=== PATIENT | male | born 1995 | race Hispanic/Latino ===

== ENCOUNTER 2019-06-02 16:07 | Emergency (ER) | payer BC ==
--- NOTE | 2019-06-02 17:02 | ER ---
Nurse's Notes [facility] Name: Chaitanya Law Age: 23 yrs Sex: Male : 1995 Arrival Date: 06/02/2019 Time: 16:11 Bed 14 Private MD: Diagnosis: Nausea and vomiting;Diarrhea, unspecified Presentation: 06/02 16:24 Presenting complaint: Patient states: abd pain, nausea/vomiting/diarrhea that began on aa5 Friday. Transition of care: patient was not received from another setting of care. Onset of symptoms was May 2019. Risk Assessment: Do you want to hurt yourself or someone else? Patient reports no desire to harm self or others. Initial Sepsis Screen: Does the patient meet any 2 criteria? No. Patient's initial sepsis screen is negative. Does the patient have a suspected source of infection? No. Patient's initial sepsis screen is negative. Care prior to arrival: None. 16:24 Acuity: ANABEL 3 aa5 16:24 Method Of Arrival: Ambulatory aa5 Historical: - Allergies: 16:25 Demerol; aa5 - Home Meds: 16:25 None [Active]; aa5 - PMHx: 16:25 None; aa5 - PSHx: 16:25 Appendectomy; aa5 - Immunization history:: Flu vaccine is not up to date. - Social history:: Smoking status: Patient/guardian denies using tobacco. - Ebola Screening: : No symptoms or risks identified at this time. Screenin:55 Abuse screen: Denies threats or abuse. Denies injuries from another. Nutritional hb screening: No deficits noted. Tuberculosis screening: No symptoms or risk factors identified. Fall Risk None identified. Assessment: 16:55 General: Appears in no apparent distress. Behavior is calm, cooperative. Pain: Pain hb currently is 5 out of 10 on a pain scale. Neuro: Level of Consciousness is awake, alert, obeys commands, Oriented to person, place, time, situation. Cardiovascular: Capillary refill < 3 seconds Patient's skin is warm and dry. Respiratory: Airway is patent Respiratory effort is even, unlabored, Respiratory pattern is regular, symmetrical. GI: Abdomen is non-distended, Bowel sounds present X 4 quads. Abd is soft and non tender X 4 quads. Reports lower abdominal pain, upper abdominal pain, diarrhea, nausea. : No signs and/or symptoms were reported regarding the genitourinary system. EENT: No signs and/or symptoms were reported regarding the EENT system. Derm: Skin is pink, warm \T\ dry. Musculoskeletal: No signs and/or symptoms reported regarding the musculoskeletal system. Vital Signs: 16:25 BP 143 / 81; Pulse 83; Resp 18 S; Temp 97.7(TE); Pulse Ox 97% on R/A; Weight 147.42 kg aa5 (R); Height 5 ft. 11 in. (180.34 cm) (R); Pain 5/10; 16:25 Body Mass Index 45.33 (147.42 kg, 180.34 cm) aa5 ED Course: 16:11 Patient arrived in ED. mr 16:12 Cherrie Viramontes FNP-C is PHCP. snw 16:12 Ji Aceves MD is Attending Physician. snw 16:25 Triage completed. aa5 16:25 Arm band placed on. aa5 16:45 PHCP role handed off by Cherrie Viramontes FNP-C cp 16:45 Clay Don PA is PHCP. cp 16:55 Patient has correct armband on for positive identification. Bed in low position. Call hb light in reach. Side rails up X 1. 17:04 Yahaira Betancourt RN is Primary Nurse. hb 17:06 No provider procedures requiring assistance completed. Patient did not have IV access hb during this emergency room visit. Administered Medications: No medications were administered Outcome: 17:01 Discharge ordered by . cp 17:14 Discharged to home ambulatory. hb 17:14 Condition: stable 17:14 Discharge instructions given to patient, Instructed on discharge instructions, follow up and referral plans. medication usage, Demonstrated understanding of instructions, follow-up care, medications, Prescriptions given X 1. 17:14 Patient left the ED. hb Signatures: Cherrie Viramontes FNP-C FNP-Chica Hemalatha AnayaKaty RN RN [facility] Clay Don PA PA cp Baxter, Heather, RN RN hb
--- NOTE | 2019-06-02 17:03 | EDPHYS ---
Physician Documentation [facility] Name: Chaitanya Law Age: 23 yrs Sex: Male : 1995 Arrival Date: 06/02/2019 Time: 16:11 Bed 14 Private MD: ED Physician Ji Aceves HPI: 06/02 16:51 This 23 yrs old Male presents to ER via Ambulatory with complaints of cp Abdominal Pain. 16:51 The patient presents with abdominal pain in the periumbilical area. Onset: The cp symptoms/episode began/occurred 2 day(s) ago. Associated signs and symptoms: Pertinent positives: nausea, vomiting, and diarrhea, Pertinent negatives: constipation, fever, testicular pain. The symptoms are described as burning. Severity of pain: in the emergency department the pain has improved. Patient reports vomiting and diarrhea improved today with 1 episode of vomiting and diarrhea this morning. Historical: - Allergies: 16:25 Demerol; aa5 - Home Meds: 16:25 None [Active]; aa5 - PMHx: 16:25 None; aa5 - PSHx: 16:25 Appendectomy; aa5 - Immunization history:: Flu vaccine is not up to date. - Social history:: Smoking status: Patient/guardian denies using tobacco. - Ebola Screening: : No symptoms or risks identified at this time. ROS: 16:55 Eyes: Negative for injury, pain, redness, and discharge. cp 16:55 Constitutional: Negative for body aches, chills, fever, poor PO intake. 16:55 ENT: Negative for drainage from ear(s), ear pain, sore throat, difficulty swallowing, difficulty handling secretions. 16:55 Cardiovascular: Negative for chest pain, palpitations. 16:55 Respiratory: Negative for cough, shortness of breath, wheezing. 16:55 Abdomen/GI: Positive for abdominal pain, nausea, vomiting, and diarrhea, Negative for constipation, black/tarry stool, rectal bleeding. 16:55 Back: Negative for pain at rest, pain with movement. 16:55 : Negative for urinary symptoms, testicular pain 16:55 Skin: Negative for cellulitis, rash. 16:55 Neuro: Negative for altered mental status, headache, weakness. 16:55 All other systems are negative. Exam: 16:59 Head/Face: Normocephalic, atraumatic. cp 16:59 Constitutional: The patient appears in no acute distress, alert, awake, comfortable, non-toxic, well developed, well nourished, obese. 16:59 Eyes: Periorbital structures: appear normal, Conjunctiva: normal, no exudate, no injection, Sclera: no appreciated abnormality, Lids and lashes: appear normal, bilaterally. 16:59 ENT: External ear(s): are unremarkable, Nose: is normal, Mouth: Lips: moist, Oral mucosa: pink and intact, moist, Posterior pharynx: is normal, airway is patent, no erythema, no exudate. 16:59 Chest/axilla: Inspection: normal, Palpation: is normal, no crepitus, no tenderness. 16:59 Cardiovascular: Rate: normal, Rhythm: regular. 16:59 Respiratory: the patient does not display signs of respiratory distress, Respirations: normal, no use of accessory muscles, no retractions, no splinting, no tachypnea, labored breathing, is not present, Breath sounds: are clear throughout, no decreased breath sounds, no stridor, no wheezing. 16:59 Abdomen/GI: Inspection: obese Bowel sounds: active, all quadrants, Palpation: abdomen is soft and non-tender, in all quadrants, voluntary guarding, is not appreciated, involuntary guarding, is not appreciated. 16:59 Back: pain, is absent, ROM is normal. Vital Signs: 16:25 BP 143 / 81; Pulse 83; Resp 18 S; Temp 97.7(TE); Pulse Ox 97% on R/A; Weight 147.42 kg aa5 (R); Height 5 ft. 11 in. (180.34 cm) (R); Pain 5/10; 16:25 Body Mass Index 45.33 (147.42 kg, 180.34 cm) aa5 MDM: 16:45 Patient medically screened. snw 16:50 Differential diagnosis: appendicitis, cholecystitis, Cholelithiasis, gastritis, cp non-specific abd pain, pancreatitis, Ureterolithiasis, urinary tract infection. 17:00 Data reviewed: vital signs, nurses notes, and as a result, I will discharge patient. cp 17:00 Counseling: I had a detailed discussion with the patient and/or guardian regarding: the cp historical points, exam findings, and any diagnostic results supporting the discharge/admit diagnosis, to return to the emergency department if symptoms worsen or persist or if there are any questions or concerns that arise at home. Administered Medications: No medications were administered Disposition: 06/02/19 17:01 Discharged to Home. Impression: Nausea and vomiting, Diarrhea, unspecified. - Condition is Stable. - Discharge Instructions: Food Choices to Help Relieve Diarrhea, Adult, Diarrhea, Adult, Nausea and Vomiting, Adult. - Prescriptions for Zofran 4 mg Oral Tablet - take 1 tablet by ORAL route every 12 hours As needed; 20 tablet. - Medication Reconciliation Form, Thank You Letter, Antibiotic Education, Prescription Opioid Use, Work release form form. - Follow up: Private Physician; When: 1 - 2 days; Reason: Worsening of condition. - Problem is new. - Symptoms have improved. Signatures: Cherrie Viramontes, STRIPPING SHOVEL OILER-C STRIPPING SHOVEL OILER-Csnw Katy Recinos, RN RN aa5 Clay Don PA PA cp Yahaira Betancourt RN RN hb Corrections: (The following items were deleted from the chart) 17:14 17:01 06/02/2019 17:01 Discharged to Home. Impression: Nausea and vomiting; Diarrhea, hb unspecified. Condition is Stable. Forms are Medication Reconciliation Form, Thank You Letter, Antibiotic Education, Prescription Opioid Use. Follow up: Private Physician; When: 1 - 2 days; Reason: Worsening of condition. Problem is new. Symptoms have improved. cp
== END 2019-06-02 17:14 | disposition home or self-care (01) ==
LOC: ER 16:07
DX: R19.7 Diarrhea, unspecified (principal); Z88.5 Allergy status to narcotic agent
CPT/HCPCS: 99282

== ENCOUNTER 2019-11-02 19:42 | Emergency (ER) | payer BC ==
[2019-11-02] MEDS ORDERED: DICYCLOMINE HCL 10 MG CAP ONE (20:12)
[2019-11-02] MEDS ORDERED: ONDANSETRON 4 MG/2 ML VIAL ONE (20:12)
--- NOTE | 2019-11-02 22:16 | EDPHYS ---
Physician Documentation [facility] Name: Chaitanya Law Age: 24 yrs Sex: Male : 1995 Arrival Date: 11/02/2019 Time: 20:03 Bed 13 Private MD: ED Physician Uvaldo Celis HPI: 11/02 22:10 This 24 yrs old Male presents to ER via Ambulatory with complaints of Flu la1 Symptoms. 22:10 The patient or guardian reports cough, flu symptoms, sore throat. Onset: The la1 symptoms/episode began/occurred 2 day(s) ago. Modifying factors: The symptoms are alleviated by nothing. the symptoms are aggravated by nothing. Associated signs and symptoms: Pertinent positives: rhinorrhea, sore throat. Severity of symptoms: At their worst the symptoms were mild in the emergency department the symptoms have improved. The patient has not experienced similar symptoms in the past. pt reports cough and scratchy throat since Friday. . Historical: - Allergies: 20:53 Demerol; ca1 - PSHx: 20:53 Appendectomy; ca1 - Immunization history:: Adult Immunizations up to date, Last tetanus immunization: unknown, Flu vaccine is not up to date. - Coronavirus screen:: The patient has NOT traveled to [place], [place], or [place] in the past 14 days. The patient has NOT had contact with known/suspected case of Coronavirus?. - Social history:: Smoking status: Patient reports the use of cigarette tobacco products, denies chronic smoking, but will smoke occasionally, Patient uses alcohol, occasionally. - Ebola Screening: : Patient negative for fever greater than or equal to 101.5 degrees Fahrenheit, and additional compatible Ebola Virus Disease symptoms Patient denies exposure to infectious person Patient denies travel to an Ebola-affected area in the 21 days before illness onset No symptoms or risks identified at this time. ROS: 22:11 Constitutional: Negative for fever, chills, and weight loss, Eyes: Negative for injury, la1 pain, redness, and discharge, ENT: + sore throat Neck: Negative for injury, pain, and swelling, Cardiovascular: Negative for chest pain, palpitations, and edema. 22:11 Abdomen/GI: Negative for abdominal pain, nausea, vomiting, diarrhea, and constipation, Back: Negative for injury and pain, : Negative for injury, bleeding, discharge, and swelling, MS/Extremity: Negative for injury and deformity, Neuro: Negative for headache, weakness, numbness, tingling, and seizure, Endocrine: Negative for neck swelling, polydipsia, polyuria, polyphagia, and marked weight changes. 22:11 Respiratory: Positive for cough. Exam: 22:12 Constitutional: This is a well developed, well nourished patient who is awake, alert, la1 and in no acute distress. Head/Face: Normocephalic, atraumatic. Eyes: Pupils equal round and reactive to light, extra-ocular motions intact. Lids and lashes normal. Conjunctiva and sclera are non-icteric and not injected. Cornea within normal limits. Periorbital areas with no swelling, redness, or edema. ENT: Nares patent. No nasal discharge, no septal abnormalities noted. Tympanic membranes are normal and external auditory canals are clear. Oropharynx with no redness, swelling, or masses, exudates, or evidence of obstruction, uvula midline. Mucous membranes moist. Neck: Trachea midline, no thyromegaly or masses palpated, and no cervical lymphadenopathy. Supple, full range of motion without nuchal rigidity, or vertebral point tenderness. No Meningismus. Chest/axilla: Normal chest wall appearance and motion. Nontender with no deformity. No lesions are appreciated. Cardiovascular: Regular rate and rhythm with a normal S1 and S2. No gallops, murmurs, or rubs. Normal PMI, no JVD. No pulse deficits. Respiratory: Lungs have equal breath sounds bilaterally, clear to auscultation and percussion. No rales, rhonchi or wheezes noted. No increased work of breathing, no retractions or nasal flaring. Abdomen/GI: Soft, non-tender, with normal bowel sounds. No distension or tympany. No guarding or rebound. No evidence of tenderness throughout. Back: No spinal tenderness. No costovertebral tenderness. Full range of motion. MS/ Extremity: Pulses equal, no cyanosis. Neurovascular intact. Full, normal range of motion. Neuro: Awake and alert, GCS 15, oriented to person, place, time, and situation. Cranial nerves II-XII grossly intact. Motor strength 5/5 in all extremities. Sensory grossly intact. Cerebellar exam normal. Normal gait. Vital Signs: 20:53 BP 130 / 85; Pulse 70; Resp 20; Temp 98.3(O); Pulse Ox 99% on R/A; Weight 145.15 kg ca1 (M); Height 5 ft. 11 in. (180.34 cm) (R); 22:16 BP 129 / 91; Pulse 68; Resp 14; Temp 98.5(O); Pulse Ox 99% on R/A; Pain 6/10; ch 20:53 Body Mass Index 44.63 (145.15 kg, 180.34 cm) ca1 MDM: 22:04 Patient medically screened. la1 22:12 Differential diagnosis: bronchitis, flu, URI. Antibiotic administration: Not indicated. la1 Data reviewed: vital signs, nurses notes, lab test result(s). Data interpreted: Pulse oximetry: on room air is 99 %. Interpretation: normal. Counseling: I had a detailed discussion with the patient and/or guardian regarding: the historical points, exam findings, and any diagnostic results supporting the discharge/admit diagnosis, lab results, the need for outpatient follow up, a family practitioner, to return to the emergency department if symptoms worsen or persist or if there are any questions or concerns that arise at home. Special discussion: Based on the history and exam findings, there is no indication for further emergent testing or inpatient evaluation. I discussed with the patient/guardian the need to see the primary care provider for further evaluation of the symptoms. 11/02 20:11 Order name: Flu tw4 11/02 20:49 Order name: Strep ca1 11/02 21:31 Order name: Throat Culture EDMS Administered Medications: No medications were administered Disposition: 11/03 05:18 Co-signature as Attending Physician, Uvaldo Celis MD I agree with the assessment and [facility] plan of care. Disposition: 11/02/19 22:16 Discharged to Home. Impression: Cough, Acute upper respiratory infection, unspecified. - Condition is Stable. - Discharge Instructions: Upper Respiratory Infection, Adult, Cough, Adult, [id number]. - Prescriptions for Guaifenesin AC 10- 100 mg/5 mL Oral Liquid - take 10 milliliter by ORAL route every 4 hours As needed; 240 milliliter. - Work release form, Medication Reconciliation Form, Thank You Letter form. - Follow up: Private Physician; When: As needed. - Problem is new. - Symptoms have improved. Signatures: Dispatcher [employer] EDIvy Russell, RN RN ch Toni Chavez, PORK CUTLET MAKER-C PORK CUTLET MAKER-Cla1 Uvaldo Celis MD MD tw4 Shadia Jessica RN RN ca1 Corrections: (The following items were deleted from the chart) 11/02 22:22 22:16 11/02/2019 22:16 Discharged to Home. Impression: Cough; Acute upper respiratory ch infection, unspecified. Condition is Stable. Forms are Medication Reconciliation Form, Thank You Letter, Antibiotic Education, Prescription Opioid Use. Follow up: Private Physician; When: As needed. Problem is new. Symptoms have improved. la1
--- NOTE | 2019-11-02 22:16 | ER ---
Nurse's Notes [facility] Name: Chaitanya Law Age: 24 yrs Sex: Male : 1995 Arrival Date: 11/02/2019 Time: 20:03 Bed 13 Private MD: Diagnosis: Cough;Acute upper respiratory infection, unspecified Presentation: 11/02 20:51 Presenting complaint: Patient states: Flu symptoms x 3 days. Coughing yellow mucous. ca1 Reports Nasal congestion, body aches, sore throat. Chest pain with cough and deep breathing. Transition of care: patient was not received from another setting of care. Onset of symptoms was November 02, 2019. Risk Assessment: Do you want to hurt yourself or someone else? Patient reports no desire to harm self or others. Initial Sepsis Screen: Does the patient meet any 2 criteria? No. Patient's initial sepsis screen is negative. Does the patient have a suspected source of infection? No. Patient's initial sepsis screen is negative. Care prior to arrival: None. 20:51 Method Of Arrival: Ambulatory ca1 20:51 Acuity: ANABEL 4 ca1 Historical: - Allergies: 20:53 Demerol; ca1 - PSHx: 20:53 Appendectomy; ca1 - Immunization history:: Adult Immunizations up to date, Last tetanus immunization: unknown, Flu vaccine is not up to date. - Coronavirus screen:: The patient has NOT traveled to [place], [place], or [place] in the past 14 days. The patient has NOT had contact with known/suspected case of Coronavirus?. - Social history:: Smoking status: Patient reports the use of cigarette tobacco products, denies chronic smoking, but will smoke occasionally, Patient uses alcohol, occasionally. - Ebola Screening: : Patient negative for fever greater than or equal to 101.5 degrees Fahrenheit, and additional compatible Ebola Virus Disease symptoms Patient denies exposure to infectious person Patient denies travel to an Ebola-affected area in the 21 days before illness onset No symptoms or risks identified at this time. Screenin:16 Abuse screen: Denies threats or abuse. Denies injuries from another. Nutritional ch screening: No deficits noted. Tuberculosis screening: No symptoms or risk factors identified. Fall Risk None identified. Assessment: 22:16 Reassessment: Patient appears in no apparent distress at this time. Patient and/or ch family updated on plan of care and expected duration. Pain level reassessed. Patient is alert, oriented x 3, equal unlabored respirations, skin warm/dry/pink. Patient states symptoms have not improved. General: Appears in no apparent distress. comfortable. Pain: Complains of pain in generalized, inculding throat and body aches Pain currently is 5 out of 10 on a pain scale. Neuro: No deficits noted. Cardiovascular: No deficits noted. Respiratory: Reports cough that is Airway Respiratory effort is even, unlabored, Breath sounds are clear bilaterally. GI: No signs and/or symptoms were reported involving the gastrointestinal system. : No signs and/or symptoms were reported regarding the genitourinary system. EENT: Ear canal clear on left ear and right ear Nares with drainage noted slight. Throat is reddened Reports nasal congestion nasal discharge pain when swallowing. Derm: Skin is pink, warm \T\ dry. Vital Signs: 20:53 BP 130 / 85; Pulse 70; Resp 20; Temp 98.3(O); Pulse Ox 99% on R/A; Weight 145.15 kg ca1 (M); Height 5 ft. 11 in. (180.34 cm) (R); 22:16 BP 129 / 91; Pulse 68; Resp 14; Temp 98.5(O); Pulse Ox 99% on R/A; Pain 6/10; ch 20:53 Body Mass Index 44.63 (145.15 kg, 180.34 cm) ca1 ED Course: 20:03 Patient arrived in ED. jg7 20:52 Triage completed. ca1 20:53 Arm band placed on right wrist. ca1 22:01 Ivy Lakhani RN is Primary Nurse. ch 22:04 Toni Chavez FNP-C is PHCP. la1 22:04 Uvaldo Celis MD is Attending Physician. la1 22:16 No apparent distress. Resting quietly. ch 22:16 Patient has correct armband on for positive identification. Side rails up X 1. Adult w/ ch patient. Pulse ox on. NIBP on. 22:16 No provider procedures requiring assistance completed. Patient did not have IV access ch during this emergency room visit. Administered Medications: No medications were administered Outcome: 22:16 Discharge ordered by . la1 22:16 Discharged to home ambulatory. 22:16 Condition: stable 22:16 Discharge instructions given to patient, Instructed on discharge instructions, follow up and referral plans. medication usage, Demonstrated understanding of instructions, follow-up care, medications, Prescriptions given X 1. 22:22 Patient left the ED. Signatures: Ivy Lakhani RN RN ch Attema, Lee, WEAVING MACHINE OPERATOR-C WEAVING MACHINE OPERATOR-Cla1 Shadia Jessica RN RN [facility] Darcy Andrade jg7 Corrections: (The following items were deleted from the chart) 22:22 22:16 Discharge instructions given to patient, Instructed on discharge instructions, follow up and referral plans. medication usage, Demonstrated understanding of instructions, follow-up care, medications, Prescriptions given X 2, ch
[2019-11-02 22:40] VITALS: O2SAT 99
[2019-11-02 22:41] VITALS: BP 129/91; TEMP 98.5
== END 2019-11-02 22:22 | disposition home or self-care (01) ==
LOC: ER 19:42
DX: J06.9 Acute upper respiratory infection, unspecified (principal); Z88.6 Allergy status to analgesic agent
CPT/HCPCS: 87070; 87081; 87804 ×2; 99283; J2405

== ENCOUNTER 2020-04-18 23:45 | Emergency (ER) | payer BC ==
[2020-04-19 01:15] LABS: Absolute Lymphocytes (CBC) 2.4 K/uL (0.7-4.9); Basophils % 0.6 % (0-1.3); Hematocrit 48.4 % (39.6-49.0); MPV 9.4 fL (7.6-11.3); RBC Red Blood Cell Count 5.19 M/uL (4.33-5.43)
[2020-04-19 01:16] LABS: Protime INR 0.97
[2020-04-19 01:34] LABS: ALT/SGPT 151 U/L (12-78); AST/SGOT 58 U/L (15-37); Albumin 3.7 g/dL (3.4-5.0); Alkaline Phosphatase 96 U/L (45-117); BUN Blood Urea Nitrogen 12 mg/dL (7-18); Bicarbonate 27 mmol/L (21-32); Bilirubin Direct 0.1 mg/dL (0-0.2); Bilirubin Total 0.5 mg/dL (0.2-1.0); Glucose Level 105 mg/dL (74-106); Magnesium 2.1 mg/dL (1.8-2.4); NT PRO-BNP 9 pg/mL (<125); Protein, Total 7.7 g/dL (6.4-8.2); Sodium Level 140 mmol/L (136-145); Troponin (Emerg Dept Use Only) < 0.02 ng/mL (0.0-0.045)
[2020-04-19 03:15] LABS: Barbiturates NEGATIVE (NEGATIVE); Benzodiazepines NEGATIVE (NEGATIVE); Cocaine NEGATIVE (NEGATIVE); METHAMPHETAM NEGATIVE (NEGATIVE); Methadone NEGATIVE (NEGATIVE); Opiates NEGATIVE (NEGATIVE); Phencyclidine NEGATIVE (NEGATIVE); THC Cannibis POSITIVE (NEGATIVE)
--- NOTE | 2020-04-19 03:22 | ER ---
Nurse's Notes [facility] Name: Chaitanya Law Age: 24 yrs Sex: Male : 1995 Arrival Date: 04/18/2020 Time: 23:47 Bed 13 Private MD: Diagnosis: Chest Pain;Palpitations Presentation: 04/18 23:50 Chief complaint: Patient states: Chest tightness for 2 days. Feels like his heart is ll1 racing at times. Denies cough/SOB. Coronavirus screen: Proceed with normal triage. Patient denies a cough. Patient denies shortness of breath or difficulty breathing. Patient denies measured and/or subjective temperature greater than 100.4F prior to today's visit. Patient denies travel on a cruise ship or to a country the [facility] currently lists as an affected area. Patient denies contact with known and/or suspected case of COVID-19. Ebola Screen: Patient denies travel to an Ebola-affected area in the 21 days before illness onset. Initial Sepsis Screen: Does the patient meet any 2 criteria? HR > 90 bpm. No. Patient's initial sepsis screen is negative. Risk Assessment: Do you want to hurt yourself or someone else? Patient reports no desire to harm self or others. Onset of symptoms was April 17, 2020. 23:50 Method Of Arrival: Ambulatory ll1 23:50 Acuity: ANABEL 3 ll1 Historical: - Allergies: 23:52 Demerol; ll1 - PSHx: 23:52 Appendectomy; ll1 - Immunization history:: Flu vaccine is not up to date. - Social history:: Smoking status: Patient reports the use of cigarette tobacco products, denies chronic smoking, but will smoke occasionally, Patient uses alcohol, on a daily basis. Patient/guardian denies using street drugs. Screenin/15 00:00 Abuse screen: Denies threats or abuse. Nutritional screening: No deficits noted. jb4 Tuberculosis screening: No symptoms or risk factors identified. Fall Risk None identified. Assessment: 00:00 General: Appears in no apparent distress. uncomfortable, Behavior is calm, cooperative, jb4 appropriate for age, PT states " I have a pressure in the middle of my chest and it feels like my hear is racing. It feels more like anxiety. I don't have any pain though just a pressure in my chest.". Pain: Denies pain. Neuro: Level of Consciousness is awake, alert, obeys commands, Oriented to person, place, time, situation. Cardiovascular: Patient's skin is warm and dry. Rhythm is sinus rhythm. Respiratory: Airway is patent Respiratory effort is even, unlabored, Respiratory pattern is regular, symmetrical. GI: No signs and/or symptoms were reported involving the gastrointestinal system. : No signs and/or symptoms were reported regarding the genitourinary system. EENT: No signs and/or symptoms were reported regarding the EENT system. Derm: Skin is intact, Skin is pink, warm \\T\\ dry. Musculoskeletal: Circulation, motion, and sensation intact. Range of motion: intact in all extremities. 01:15 Reassessment: Patient appears in no apparent distress at this time. Patient and/or jb4 family updated on plan of care and expected duration. Pain level reassessed. Patient is alert, oriented x 3, equal unlabored respirations, skin warm/dry/pink. Patient states feeling better. 02:37 Reassessment: Patient appears in no apparent distress at this time. Patient and/or jb4 family updated on plan of care and expected duration. Pain level reassessed. Patient is alert, oriented x 3, equal unlabored respirations, skin warm/dry/pink. PT back from CT. 03:31 Reassessment: Patient appears in no apparent distress at this time. Patient and/or jb4 family updated on plan of care and expected duration. Pain level reassessed. Patient is alert, oriented x 3, equal unlabored respirations, skin warm/dry/pink. Vital Signs: 04/18 23:50 BP 144 / 102; Pulse 97; Resp 18; Temp 98.2; Pulse Ox 97% ; Pain 5/10; ll1 07 01:30 BP 132 / 87; Pulse 74; Resp 16; Pulse Ox 98% on R/A; Pain 0/10; jb4 02:30 BP 132 / 77; Pulse 85; Resp 16; Pulse Ox 97% on R/A; jb4 03:15 BP 125 / 78; Pulse 68; Resp 16; Pulse Ox 98% on R/A; Pain 0/10; jb4 ED Course: 04/18 23:47 Patient arrived in ED. cl3 23:52 Triage completed. ll1 23:53 Arm band placed on Patient placed in an exam room, on a stretcher. ll1 23:55 Dalton Frederick MD is Attending Physician. 7 23:58 bus driver/monitor on. Pulse ox on. NIBP on. jb4 04/19 00:00 Patient has correct armband on for positive identification. Bed in low position. Call jb4 light in reach. Side rails up X 1. 00:00 Patient maintains SpO2 saturation greater than 95% on room air. jb4 00:26 Ovi Rai, RN is Primary Nurse. jb4 00:28 XRAY Chest (1 view) In Process Unspecified. EDMS 00:55 Inserted saline lock: 20 gauge in right antecubital area, using aseptic technique. Blood collected. 02:48 CT Chest For PE Angio In Process Unspecified. EDMS 03:32 No provider procedures requiring assistance completed. IV discontinued, intact, jb4 bleeding controlled, No redness/swelling at site. Pressure dressing applied. Administered Medications: No medications were administered Outcome: 03:22 Discharge ordered by . [facility] 03:32 Discharged to home ambulatory. jb4 03:32 Condition: stable 03:32 Discharge instructions given to patient, Instructed on discharge instructions, follow up and referral plans. Demonstrated understanding of instructions, follow-up care. 03:32 Patient left the ED. jb4 Signatures: Dispatcher [employer] EDMI Ovi Rai, RN RN jb4 Kayla Fuetnes Rachid Miles cl3 Yocasta Miles RN RN ll1 Dalton Frederick MD MD [facility]
--- NOTE | 2020-04-19 03:22 | EDPHYS ---
Physician Documentation [facility] Name: Chaitanya Law Age: 24 yrs Sex: Male : 1995 Arrival Date: 04/18/2020 Time: 23:47 Bed 13 Private MD: ED Physician Dalton Frederick HPI: 04/19 00:13 This 24 yrs old Male presents to ER via Ambulatory with complaints of Chest mh7 Tightness, Heart Racing. 00:13 The patient or guardian reports chest pain that is located primarily in the anterior mh7 chest wall, right. The pain does not radiate. Associated signs and symptoms: Pertinent positives: palpitations, Pertinent negatives: abdominal pain, cough, diaphoresis, dizziness, headache, lower extremity pain, lower extremity swelling, lightheadedness, nausea, near syncope, recent travel, shortness of breath, syncope, vomiting. The chest pain is described as tightness. Duration: The patient or guardian reports multiple episodes, that are intermittent, that wax and wane, with no pattern. Modifying factors: The symptoms are alleviated by nothing. the symptoms are aggravated by nothing. Severity of pain: At its worst the pain was moderate yesterday, in the emergency department the pain has improved markedly. Historical: - Allergies: 04/18 23:52 Demerol; ll1 - PSHx: 23:52 Appendectomy; ll1 - Immunization history:: Flu vaccine is not up to date. - Social history:: Smoking status: Patient reports the use of cigarette tobacco products, denies chronic smoking, but will smoke occasionally, Patient uses alcohol, on a daily basis. Patient/guardian denies using street drugs. ROS: 04/19 00:13 Constitutional: Negative for fever, chills, and weight loss, Eyes: Negative for injury, mh7 pain, redness, and discharge, ENT: Negative for injury, pain, and discharge, Neck: Negative for injury, pain, and swelling, Respiratory: Negative for shortness of breath, cough, wheezing, and pleuritic chest pain, Abdomen/GI: Negative for abdominal pain, nausea, vomiting, diarrhea, and constipation, Back: Negative for injury and pain, : Negative for injury, bleeding, discharge, and swelling, MS/Extremity: Negative for injury and deformity, Skin: Negative for injury, rash, and discoloration, Neuro: Negative for headache, weakness, numbness, tingling, and seizure, Psych: Negative for depression, anxiety, suicide ideation, homicidal ideation, and hallucinations, Allergy/Immunology: Negative for hives, rash, and allergies, Endocrine: Negative for neck swelling, polydipsia, polyuria, polyphagia, and marked weight changes, Hematologic/Lymphatic: Negative for swollen nodes, abnormal bleeding, and unusual bruising. Exam: 00:13 Constitutional: This is a well developed, well nourished patient who is awake, alert, mh7 and in no acute distress. Head/Face: Normocephalic, atraumatic. Eyes: Pupils equal round and reactive to light, extra-ocular motions intact. Lids and lashes normal. Conjunctiva and sclera are non-icteric and not injected. Cornea within normal limits. Periorbital areas with no swelling, redness, or edema. Neck: Trachea midline, no thyromegaly or masses palpated, and no cervical lymphadenopathy. Supple, full range of motion without nuchal rigidity, or vertebral point tenderness. No Meningismus. Chest/axilla: Normal chest wall appearance and motion. Nontender with no deformity. No lesions are appreciated. Cardiovascular: Regular rate and rhythm with a normal S1 and S2. No gallops, murmurs, or rubs. Normal PMI, no JVD. No pulse deficits. Respiratory: Lungs have equal breath sounds bilaterally, clear to auscultation and percussion. No rales, rhonchi or wheezes noted. No increased work of breathing, no retractions or nasal flaring. Abdomen/GI: Soft, non-tender, with normal bowel sounds. No distension or tympany. No guarding or rebound. No evidence of tenderness throughout. Back: No spinal tenderness. No costovertebral tenderness. Full range of motion. Skin: Warm, dry with normal turgor. Normal color with no rashes, no lesions, and no evidence of cellulitis. MS/ Extremity: Pulses equal, no cyanosis. Neurovascular intact. Full, normal range of motion. Neuro: Awake and alert, GCS 15, oriented to person, place, time, and situation. Cranial nerves II-XII grossly intact. Motor strength 5/5 in all extremities. Sensory grossly intact. Cerebellar exam normal. Normal gait. Psych: Awake, alert, with orientation to person, place and time. Behavior, mood, and affect are within normal limits. 01:09 ECG was reviewed by the Attending Physician. [facility] Vital Signs: 04/18 23:50 BP 144 / 102; Pulse 97; Resp 18; Temp 98.2; Pulse Ox 97% ; Pain 5/10; ll1 04/19 01:30 BP 132 / 87; Pulse 74; Resp 16; Pulse Ox 98% on R/A; Pain 0/10; jb4 02:30 BP 132 / 77; Pulse 85; Resp 16; Pulse Ox 97% on R/A; jb4 03:15 BP 125 / 78; Pulse 68; Resp 16; Pulse Ox 98% on R/A; Pain 0/10; jb4 MDM: 00:05 Patient medically screened. [facility] 03:19 Differential diagnosis: acute myocardial infarction, acute pericarditis, anxiety, [facility] coronary artery disease chest wall pain, costochondritis, pneumonia, pneumothorax, pulmonary embolus. HEART Score: History: Slightly Suspicious (0), ECG: Normal (0), Age: < or = 45 years (0), Risk Factors: No Risk Factors Known (0), Troponin: < or = 1 x Normal Limit (0), Total Score = 0. Data reviewed: vital signs, nurses notes, lab test result(s), cardiac enzymes, CBC, electrolytes, urinalysis, urine drug screen, EKG, radiologic studies, CT scan, plain films. Data interpreted: groundwater monitoring technician: rate is 85 beats/min, rhythm is normal sinus rhythm, regular, Interpretation: normal rate, normal rhythm, Pulse oximetry: on room air is 97 %. Interpretation: normal. Counseling: I had a detailed discussion with the patient and/or guardian regarding: the historical points, exam findings, and any diagnostic results supporting the discharge/admit diagnosis, lab results, radiology results, the need for outpatient follow up, to return to the emergency department if symptoms worsen or persist or if there are any questions or concerns that arise at home. Response to treatment: the patient's symptoms have resolved after treatment, the patient's blood pressure is in an acceptable range, mental status has returned to baseline, the patient no longer shows bradycardia, the patient is not short of breath, the patient is not tachycardic, the patient's pain is gone, the patient's temperature has normalized. 04/19 00:13 Order name: Basic Metabolic Panel [facility] 04/19 00:13 Order name: CBC with Diff [facility] 04/19 00:13 Order name: LFT's [facility] 04/19 00:13 Order name: Magnesium [facility] 04/19 00:13 Order name: NT PRO-BNP; Complete Time: 01:46 [facility] 04/19 00:13 Order name: PT-INR; Complete Time: 01:46 [facility] 04/19 00:13 Order name: Troponin (emerg Dept Use Only); Complete Time: 01:46 [facility] 04/19 00:13 Order name: UDS; Complete Time: 03:19 [facility] 04/19 00:14 Order name: Basic Metabolic Panel; Complete Time: 01:46 EDMS 04/19 00:14 Order name: CBC with Automated Diff; Complete Time: 01:19 [facility]OR 04/19 00:14 Order name: Liver (Hepatic) Function; Complete Time: 01:46 EDMS 04/19 00:14 Order name: Magnesium; Complete Time: 01:46 [facility] 04/19 01:12 Order name: Thyroid Stimulating Hormone; Complete Time: 01:46 [facility] 04/19 00:13 Order name: XRAY Chest (1 view) [facility] 04/19 00:13 Order name: EKG; Complete Time: 00:15 [facility] 04/19 00:13 Order name: Cardiac monitoring; Complete Time: 00:57 [facility] 04/19 00:13 Order name: EKG - Nurse/Tech; Complete Time: 00:57 [facility] 04/19 00:13 Order name: IV Saline Lock; Complete Time: 00:57 [facility] 04/19 00:13 Order name: Labs collected and sent; Complete Time: 00:57 [facility] 04/19 00:13 Order name: O2 Per Protocol; Complete Time: 00:57 [facility] 04/19 00:13 Order name: O2 Sat Monitoring; Complete Time: 00:58 [facility] 04/19 01:52 Order name: CT Chest For PE Angio [facility] EC:09 Rate is 75 beats/min. Rhythm is regular, Normal Sinus Rhythm. QRS [place] is Normal. [place] mh7 interval is normal. QRS interval is normal. QT interval is normal. No Q waves. T waves are Normal. No ST changes noted. Clinical impression: Normal ECG. Administered Medications: No medications were administered Disposition: 04/19/20 03:22 Discharged to Home. Impression: Chest Pain, Palpitations. - Condition is Stable. - Discharge Instructions: Nonspecific Chest Pain, [id number], Palpitations, [id number]. - Work release form, Medication Reconciliation Form, Thank You Letter, Antibiotic Education, Prescription Opioid Use form. - Follow up: Private Physician; When: 1 - 2 days; Reason: Worsening of condition, Recheck today's complaints, Re-evaluation by your physician. - Problem is an acute exacerbation. - Symptoms have improved. Signatures: Dispatcher [employer] [facility] Ovi Rai RN RN jb4 Yocasta Miles RN RN ll1 Dalton Frederick MD MD mh7 Corrections: (The following items were deleted from the chart) 01:12 00:18 THYROID STIMULAT HORMONE+C.LAB.BRZ ordered. [facility] 03:32 03:22 04/19/2020 03:22 Discharged to Home. Impression: Chest Pain; Palpitations. jb4 Condition is Stable. Forms are Medication Reconciliation Form, Thank You Letter, Antibiotic Education, Prescription Opioid Use. Follow up: Private Physician; When: 1 - 2 days; Reason: Worsening of condition, Recheck today's complaints, Re-evaluation by your physician. Problem is an acute exacerbation. Symptoms have improved. mh7
[2020-04-19 03:45] VITALS: TEMP 98.2
[2020-04-19 03:54] VITALS: BP 125/78; O2SAT 98
--- NOTE | 2020-04-19 07:44 | EKG ---
Test Date: 2020-04-19 Test Time: 00:50:30 Newspaper Correspondent: MEASUREMENT RESULTS: Intervals: Rate: 75 NE: 186 QRSD: 96 QT: 372 QTc: 415 [place]: P: 45 NE: 186 QRS: 77 T: 11 INTERPRETIVE STATEMENTS: Normal sinus rhythm Normal ECG Compared to ECG 03/25/2002 15:23:00 No significant changes Electronically Signed On 04-19-20 07:44:22 CDT by Varun Gonzales
--- NOTE | 2020-04-19 08:30 | RAD REPORT ---
EXAM DESCRIPTION: Judi Single View04/19/2020 12:28 am CLINICAL HISTORY: Chest pain COMPARISON: none FINDINGS: The lungs appear clear of acute infiltrate. The heart is normal size IMPRESSION: No acute abnormalities displayed
--- NOTE | 2020-04-19 10:16 | RAD REPORT ---
EXAM DESCRIPTION: CT - Chest For Pe Angio - 04/19/2020 3:55 am CLINICAL HISTORY: Pulmonary embolism COMPARISON: None. TECHNIQUE: Chest CTA axial images acquired with IV contrast. Coronal and sagittal CTA MIPs and MPRs created. Exam performed according to departmental dose-optimization program which includes automated exposure control, adjustment of mA and/or kV according to patient size, and/or use of iterative recon struction technique. FINDINGS: Evaluation more difficult due to patient's respiratory motion artifact. Heart size normal. No pericardial effusion. Ascending aorta is difficult to accurately evaluate due to cardiac motion artifact. Aortic arch and descending thoracic aorta otherwise appear unremarkable. No evidence of large central pulmonary embolism. Evaluation of small peripheral pulmonary arteries is difficult due to respiratory motion artifact. Evaluation of lung parenchyma is difficult due to respiratory motion artifact. No lung mass, consolidation, or significant pulmonary edema is grossly seen. Mild bilateral breast retroareolar soft tissue likely represents gynecomastia. Partially-imaged upper abdomen shows marked diffuse fatty infiltration of liver. Marked right hemidiaphragm elevation. No acute fracture. IMPRESSION: Evaluation more difficult due to patient's respiratory motion artifact. 1. No evidence of large central pulmonary embolism. Evaluation of small peripheral pulmonary arteries is difficult due to respiratory motion artifact 2. Other findings described above. Electronically signed by: Ryley Malin MD 04/19/2020 3:08 AM CDT Due to temporary technical issues with the PACS/Fluency reporting system, reports are being signed by the in house radiologist without review as a courtesy to ensure prompt reporting. The interpreting r adiologist is fully responsible for the content of the report.
== END 2020-04-19 03:32 | disposition home or self-care (01) ==
LOC: ER 23:45
DX: R00.2 Palpitations (principal); Z72.0 Tobacco use; Z88.5 Allergy status to narcotic agent
CPT/HCPCS: 93005; 85025; 80048; 36415; 83735; 85610; 80076; 80307 ×8; 84443; 84484; 83880; 71275; 71045; 99285; Q9967

== ENCOUNTER 2020-12-03 20:29 | Emergency (ER) | payer BC, SELFPAY ==
[2020-12-03] MEDS ORDERED: NA CHLORIDE 0.9% 1,000 ML ONE (21:48)
[2020-12-03 21:53] LABS: Absolute Lymphocytes (CBC) 2.2 K/uL (0.7-4.9); Basophils % 0.6 % (0-1.3); Lymphocytes % 19.6 % (15.3-44.8); MPV 10.1 fL (7.6-11.3); RBC Red Blood Cell Count 5.08 M/uL (4.33-5.43)
[2020-12-03 22:12] LABS: Protime INR 1.01
[2020-12-03 22:14] LABS: Barbiturates NEGATIVE (NEGATIVE); Benzodiazepines NEGATIVE (NEGATIVE); Cocaine NEGATIVE (NEGATIVE); METHAMPHETAM NEGATIVE (NEGATIVE); Methadone NEGATIVE (NEGATIVE); Opiates NEGATIVE (NEGATIVE); Phencyclidine NEGATIVE (NEGATIVE); THC Cannibis NEGATIVE (NEGATIVE)
[2020-12-03 22:19] LABS: AST/SGOT 196 U/L (15-37); Alkaline Phosphatase 102 U/L (45-117); BUN Blood Urea Nitrogen 8 mg/dL (7-18); Bicarbonate 29 mmol/L (21-32); Bilirubin Direct 0.3 mg/dL (0-0.2); Bilirubin Total 0.8 mg/dL (0.2-1.0); Glucose Level 94 mg/dL (74-106); Magnesium 1.9 mg/dL (1.8-2.4); NT PRO-BNP 12 pg/mL (<125); Potassium 3.9 mmol/L (3.5-5.1); Protein, Total 7.9 g/dL (6.4-8.2); Sodium Level 137 mmol/L (136-145); Troponin (Emerg Dept Use Only) < 0.02 ng/mL (0.0-0.045)
[2020-12-03 22:30] LABS: ALT/SGPT 335 U/L (12-78)
[2020-12-03 23:08] LABS: Urine Blood NEGATIVE (NEG); Urine Glucose NEGATIVE (NEG); Urine Protein NEGATIVE (NEG); Urine Specific Gravity 1.015 (1.005-1.030); Urine pH 6.5 (5.0-7.0)
--- NOTE | 2020-12-04 00:19 | EDPHYS ---
Physician Documentation [facility] Name: Chaitanya Law Age: 25 yrs Sex: Male : 1995 Arrival Date: 12/03/2020 Time: 20:30 Bed 4 Private MD: ED Physician Dalton Frederick HPI: 12/03 21:53 This 25 yrs old Male presents to ER via Ambulatory with complaints of Chest mh7 Tightness, Disoriented. 21:53 The patient or guardian reports chest pain that is located primarily in the anterior mh7 chest wall, left. The pain radiates to the left arm. 21:54 Associated signs and symptoms: Pertinent negatives: abdominal pain, cough, diaphoresis, mh7 dizziness, headache, lower extremity pain, lower extremity swelling, lightheadedness, nausea, near syncope, palpitations, recent travel, shortness of breath, syncope, vomiting. The chest pain is described as tightness. Duration: The patient or guardian reports multiple episodes, that are intermittent, that wax and wane. Modifying factors: The symptoms are alleviated by nothing. the symptoms are aggravated by nothing. Severity of pain: At its worst the pain was moderate today, in the emergency department the pain has improved moderately. The patient has experienced similar episodes in the past, several times. Historical: - Allergies: 20:38 Demerol; mg2 - Home Meds: 20:38 None [Active]; mg2 - PMHx: 20:38 None; mg2 - PSHx: 20:38 Appendectomy; mg2 - Immunization history:: Flu vaccine is not up to date. - Social history:: Smoking status: Patient reports the use of cigarette tobacco products, Patient uses alcohol, street drugs, marijuana. ROS: 21:54 Constitutional: Negative for fever, chills, and weight loss, Eyes: Negative for injury, mh7 pain, redness, and discharge, ENT: Negative for injury, pain, and discharge, Neck: Negative for injury, pain, and swelling, Respiratory: Negative for shortness of breath, cough, wheezing, and pleuritic chest pain, Abdomen/GI: Negative for abdominal pain, nausea, vomiting, diarrhea, and constipation, Back: Negative for injury and pain, : Negative for injury, bleeding, discharge, and swelling, MS/Extremity: Negative for injury and deformity, Skin: Negative for injury, rash, and discoloration, Neuro: Negative for headache, weakness, numbness, tingling, and seizure, Psych: Negative for depression, anxiety, suicide ideation, homicidal ideation, and hallucinations, Allergy/Immunology: Negative for hives, rash, and allergies, Endocrine: Negative for neck swelling, polydipsia, polyuria, polyphagia, and marked weight changes, Hematologic/Lymphatic: Negative for swollen nodes, abnormal bleeding, and unusual bruising. Exam: 21:54 Constitutional: This is a well developed, well nourished patient who is awake, alert, mh7 and in no acute distress. Head/Face: Normocephalic, atraumatic. Eyes: Pupils equal round and reactive to light, extra-ocular motions intact. Lids and lashes normal. Conjunctiva and sclera are non-icteric and not injected. Cornea within normal limits. Periorbital areas with no swelling, redness, or edema. Neck: Trachea midline, no thyromegaly or masses palpated, and no cervical lymphadenopathy. Supple, full range of motion without nuchal rigidity, or vertebral point tenderness. No Meningismus. 21:54 Cardiovascular: Regular rate and rhythm with a normal S1 and S2. No gallops, murmurs, or rubs. Normal PMI, no JVD. No pulse deficits. Respiratory: Lungs have equal breath sounds bilaterally, clear to auscultation and percussion. No rales, rhonchi or wheezes noted. No increased work of breathing, no retractions or nasal flaring. Abdomen/GI: Soft, non-tender, with normal bowel sounds. No distension or tympany. No guarding or rebound. No evidence of tenderness throughout. Back: No spinal tenderness. No costovertebral tenderness. Full range of motion. Skin: Warm, dry with normal turgor. Normal color with no rashes, no lesions, and no evidence of cellulitis. MS/ Extremity: Pulses equal, no cyanosis. Neurovascular intact. Full, normal range of motion. Neuro: Awake and alert, GCS 15, oriented to person, place, time, and situation. Cranial nerves II-XII grossly intact. Motor strength 5/5 in all extremities. Sensory grossly intact. Cerebellar exam normal. Normal gait. Psych: Awake, alert, with orientation to person, place and time. Behavior, mood, and affect are within normal limits. 21:54 Chest/axilla: Inspection: normal, Palpation: tenderness, that is moderate, of the anterior aspect of left upper chest, that totally reproduces the patient's complaints, Axilla: are normal, Lymph nodes: lymphadenopathy is not appreciated. Vital Signs: 20:35 BP 179 / 108; Pulse 102; Resp 18; Temp 98.9; Pulse Ox 98% on R/A; Weight 149.69 kg; mg2 Height 5 ft. 10 in. (177.80 cm); 22:08 BP 166 / 90; Pulse 95; Resp 18; Pulse Ox 99% on R/A; mg2 12/04 00:00 BP 158 / 88; Pulse 92; Resp 18; Pulse Ox 99% on R/A; wh 12/03 20:35 Body Mass Index 47.35 (149.69 kg, 177.80 cm) mg2 MDM: 00:14 Differential diagnosis: acute myocardial infarction, acute pericarditis, anxiety, chest mh7 wall pain, costochondritis, myocarditis, pericarditis, pneumonia, pulmonary embolus. HEART Score: History: Slightly Suspicious (0), ECG: Non specific repolarization disturbance / LBTB / PM (1), Age: < or = 45 years (0), Risk Factors: 1 or 2 risk factors (1), [Obesity] Troponin: < or = 1 x Normal Limit (0), Total Score = 2. Data reviewed: vital signs, nurses notes, old medical records, lab test result(s), cardiac enzymes, CBC, drug level(s), electrolytes, urinalysis, urine drug screen, EKG, radiologic studies, plain films. Data interpreted: Pulse oximetry: on room air is 99 %. Interpretation: normal. Counseling: I had a detailed discussion with the patient and/or guardian regarding: the historical points, exam findings, and any diagnostic results supporting the discharge/admit diagnosis, the presence of at least one elevated blood pressure reading (>120/80) during this emergency department visit, lab results, radiology results, the need for outpatient follow up, to return to the emergency department if symptoms worsen or persist or if there are any questions or concerns that arise at home. Response to treatment: the patient's symptoms have resolved after treatment, the patient's blood pressure is in an acceptable range, mental status has returned to baseline, the patient no longer shows bradycardia, the patient is not short of breath, the patient is not tachycardic, the patient's pain is gone, the patient's temperature has normalized. Refusal of service: The patient/guardian displays adequate decision making capability and despite a detailed discussion of alternatives, benefits, risks, and consequences refuses: all lab tests, repeat Troponin. 00:18 Patient medically screened. [facility] 12/03 21:23 Order name: Basic Metabolic Panel [facility] 12/03 21:23 Order name: CBC with Diff; Complete Time: 23:09 [facility] 12/03 21:23 Order name: LFT's; Complete Time: 23:09 [facility] 12/03 21:23 Order name: Magnesium; Complete Time: 23:09 [facility] 12/03 21:23 Order name: NT PRO-BNP; Complete Time: 23:09 [facility] 12/03 21:23 Order name: PT-INR; Complete Time: 23:54 [facility] 12/03 21:23 Order name: Troponin (emerg Dept Use Only); Complete Time: 23:09 [facility] 12/03 21:23 Order name: ETOH Level; Complete Time: 23:09 [facility] 12/03 21:23 Order name: UDS; Complete Time: 23:09 [facility] 12/03 21:24 Order name: Basic Metabolic Panel; Complete Time: 23:09 [facility] 12/03 22:00 Order name: Urine Dipstick--Ancillary (enter results) [place] 12/03 22:00 Order name: Urine Dipstick-Ancillary; Complete Time: 23:09 [facility] 12/03 23:14 Order name: D-Dimer [facility] 12/03 21:23 Order name: XRAY Chest (1 view) [facility] 12/03 21:23 Order name: EKG; Complete Time: 21:24 [facility] 12/03 21:23 Order name: Cardiac monitoring; Complete Time: 21:27 [facility] 12/03 21:23 Order name: EKG - Nurse/Tech; Complete Time: 21: [facility] 12/03 21:23 Order name: IV Saline Lock; Complete Time: 21:39 [facility] 12/03 21:23 Order name: Labs collected and sent; Complete Time: 21:39 [facility] 12/03 21:23 Order name: O2 Per Protocol; Complete Time: 21: [facility] 12/03 21:23 Order name: O2 Sat Monitoring; Complete Time: 21:27 [facility] 12/03 21:23 Order name: Urine Dipstick-Ancillary (obtain specimen); Complete Time: 22:08 [facility] 12/03 23:23 Order name: D-Dimer; Complete Time: 23:54 [facility] Administered Medications: 12/03 21:39 Drug: NS 0.9% 1000 ml Route: IV; Rate: 1000 ml; Site: left antecubital; 23:10 Follow up: Response: No adverse reaction; IV Status: Completed infusion; IV Intake: mg2 1000ml 12/04 00:28 Follow up: Response: No adverse reaction; IV Status: Completed infusion Disposition: 12/04/20 00:18 Discharged to Home. Impression: Chest pain, unspecified. - Condition is Stable. - Discharge Instructions: Nonspecific Chest Pain, [id number]. - Medication Reconciliation Form, Thank You Letter, Antibiotic Education, Prescription Opioid Use form. - Follow up: Private Physician; When: 1 - 2 days; Reason: Worsening of condition, Recheck today's complaints, Continuance of care, Re-evaluation by your physician. Follow up: Ji Akins MD; When: 1 - 2 days; Reason: Worsening of condition, Recheck today's complaints. - Problem is an acute exacerbation. - Symptoms have improved. Signatures: Dispatcher [employer] [facility] Kayla Fuenets RN RN Juaquin Santiago RN RN [facility] [place] Dalton Frederick MD MD mh7 Corrections: (The following items were deleted from the chart) 12/03 23:22 23:15 D-Dimer ordered. [facility] 12/04 00:29 00:18 12/04/2020 00:18 Discharged to Home. Impression: Chest pain, unspecified. Condition is Stable. Forms are Medication Reconciliation Form, Thank You Letter, Antibiotic Education, Prescription Opioid Use. Follow up: Private Physician; When: 1 - 2 days; Reason: Worsening of condition, Recheck today's complaints, Continuance of care, Re-evaluation by your physician. Follow up: Ji Akisn; When: 1 - 2 days; Reason: Worsening of condition, Recheck today's complaints. Problem is an acute exacerbation. Symptoms have improved. 7
--- NOTE | 2020-12-04 00:19 | ER ---
Nurse's Notes [facility] Name: Chaitanya Law Age: 25 yrs Sex: Male : 1995 Arrival Date: 12/03/2020 Time: 20:30 Bed 4 Private MD: Diagnosis: Chest pain, unspecified Presentation: 12/03 20:35 Chief complaint: Patient states: i woke up with chest tightness and tingling sensation mg2 in my left arm started 2 hours ago. Coronavirus screen: Client denies travel out of the [place] in the last 14 days. At this time, the client does not indicate any symptoms associated with coronavirus-19. Ebola Screen: No symptoms or risks identified at this time. Initial Sepsis Screen: Does the patient meet any 2 criteria? No. Patient's initial sepsis screen is negative. Does the patient have a suspected source of infection? No. Patient's initial sepsis screen is negative. Risk Assessment: Do you want to hurt yourself or someone else? Patient reports no desire to harm self or others. Onset of symptoms was December 03, 2020. 20:35 Method Of Arrival: Ambulatory mg2 20:35 Acuity: ANABEL 3 mg2 Historical: - Allergies: 20:38 Demerol; mg2 - Home Meds: 20:38 None [Active]; mg2 - PMHx: 20:38 None; mg2 - PSHx: 20:38 Appendectomy; mg2 - Immunization history:: Flu vaccine is not up to date. - Social history:: Smoking status: Patient reports the use of cigarette tobacco products, Patient uses alcohol, street drugs, marijuana. Screenin:09 Abuse screen: Denies threats or abuse. Denies injuries from another. Nutritional mg2 screening: No deficits noted. Tuberculosis screening: No symptoms or risk factors identified. Fall Risk IV access (20 points). Assessment: 20:53 General: Appears uncomfortable, Behavior is calm, cooperative, appropriate for age. ll1 Pain: Complains of pain in chest Pain radiates to left arm Pain Quality of pain is described as pressure, Pain began 1 day ago. Neuro: No deficits noted. Cardiovascular: Reports chest pain, palpitations, Heart tones S1 S2 Capillary refill < 3 seconds Clubbing of nail beds is absent JVD is absent Patient's skin is warm and dry. Pulses are all present. Rhythm is sinus tachycardia Chest pain is described as vague, diffuse. Respiratory: No deficits noted. GI: No deficits noted. Musculoskeletal: Circulation, motion, and sensation intact. Capillary refill < 3 seconds, Range of motion: intact in all extremities, Reports Tingling L arm. 22:05 Reassessment: Patient appears in no apparent distress at this time. Patient and/or wh family updated on plan of care and expected duration. Pain level reassessed. Patient is alert, oriented x 3, equal unlabored respirations, skin warm/dry/pink. 23:09 Reassessment: Patient appears in no apparent distress at this time. Patient and/or mg2 family updated on plan of care and expected duration. Pain level reassessed. Patient is alert, oriented x 3, equal unlabored respirations, skin warm/dry/pink. Vital Signs: 20:35 BP 179 / 108; Pulse 102; Resp 18; Temp 98.9; Pulse Ox 98% on R/A; Weight 149.69 kg; mg2 Height 5 ft. 10 in. (177.80 cm); 22:08 BP 166 / 90; Pulse 95; Resp 18; Pulse Ox 99% on R/A; mg2 03 00:00 BP 158 / 88; Pulse 92; Resp 18; Pulse Ox 99% on R/A; 12/03 20:35 Body Mass Index 47.35 (149.69 kg, 177.80 cm) mg2 ED Course: 12/03 20:30 Patient arrived in ED. cl3 20:37 Triage completed. mg2 20:37 Arm band placed on. EKG completed in triage. Results shown to MD. mg2 20:53 Yocasta Miles RN is Primary Nurse. ll1 20:53 Patient placed in an exam room, on a stretcher. ll1 21:02 Dalton Frederick MD is Attending Physician. mh7 21:35 Inserted saline lock: 20 gauge in left antecubital area, using aseptic technique. Blood mg2 collected. by IFRAH Garza. Patient maintains SpO2 saturation greater than 95% on room air. 22:30 Notified ED physician of a critical lab result(s). ALT of 335 Dr Frederick notified. bb 22:44 XRAY Chest (1 view) In Process Unspecified. EDMS 23:09 No provider procedures requiring assistance completed. mg2 23:10 Patient has correct armband on for positive identification. monitor worker on. Pulse mg2 ox on. NIBP on. Door closed. Warm blanket given. 12/04 00:17 Ji Akins MD is Referral Physician. 7 00:22 IV discontinued, intact, bleeding controlled, No redness/swelling at site. Pressure mg2 dressing applied. Administered Medications: 12/03 21:39 Drug: NS 0.9% 1000 ml Route: IV; Rate: 1000 ml; Site: left antecubital; 23:10 Follow up: Response: No adverse reaction; IV Status: Completed infusion; IV Intake: mg2 1000ml 12/04 00:28 Follow up: Response: No adverse reaction; IV Status: Completed infusion Intake: 12/03 23:10 IV: 1000ml; Total: 1000ml. mg2 Outcome: 12/04 00:18 Discharge ordered by . [facility] 00:28 Discharged to home ambulatory. 00:28 Condition: stable 00:28 Discharge instructions given to patient, Instructed on discharge instructions, follow up and referral plans. POC Demonstrated understanding of instructions, follow-up care, POC 00:29 Patient left the ED. Signatures: Dispatcher [employer] EDMS Beth Velasco RN RN Kayla Fuentes RN RN Juaquin Santiago RN RN mg2 Rachid Miles cl3 Yocasta Miles RN RN ll1 Dalton Frederick MD MD mh7 Corrections: (The following items were deleted from the chart) 12/03 20:38 20:35 Pulse 102bpm; Resp 18bpm; Pulse Ox 98% RA; Temp 98.9F; 149.69 kg; Height 5 ft. 10 mg2 in.; BMI: 47.3; mg2
[2020-12-04 04:08] VITALS: TEMP 98.9
[2020-12-04 04:09] VITALS: O2SAT 99
[2020-12-04 04:11] VITALS: BP 158/88
--- NOTE | 2020-12-04 08:13 | RAD REPORT ---
EXAM DESCRIPTION: RAD - Chest Single View - 12/03/2020 10:44 pm CLINICAL HISTORY: CHEST PAIN COMPARISON: April 2020 CT chest and portable chest TECHNIQUE: AP portable chest image was obtained 12/03/2020 10:44 pm . FINDINGS: Lung rene are clear. Patient has significant right hemidiaphragm elevation similar to pr ior imaging. Heart and vasculature are normal. No measurable pleural effusion and no pneumothorax. No acute bony abnormality seen. No acute aortic findings suspected. IMPRESSION: No acute cardiopulmonary process. No significant change from comparison study.
--- NOTE | 2020-12-04 17:09 | EKG ---
Test Date: 2020-12-03 Test Time: 20:42:00 [employer] Project Manager: MEASUREMENT RESULTS: Intervals: Rate: 113 OR: 140 QRSD: 80 QT: 328 QTc: 449 [place]: P: 38 OR: 140 QRS: 80 T: -33 INTERPRETIVE STATEMENTS: Sinus tachycardia T wave abnormality, consider inferolateral ischemia Abnormal ECG Compared to ECG 04/19/2020 00:50:30 T-wave abnormality now present Possible ischemia now present Sinus rhythm no longer present Electronically Signed On 12-04-20 17:06:16 TEACHER DANCING by Varun Gonzales
== END 2020-12-04 00:29 | disposition home or self-care (01) ==
LOC: ER 20:29
DX: R07.89 Other chest pain (principal); Z88.5 Allergy status to narcotic agent
CPT/HCPCS: 96361; 93005; 85025; 80048; 36415; 80320; 83735; 85610; 85379; 80076; 80307 ×8; 81003; 84484; 83880; 71045; 96360; 99285; J7030